=== PATIENT | female | born 1945 | race Caucasian/White ===

== ENCOUNTER 2022-03-06 15:17 | Emergency (ER) | payer OTHER ==
[~2022-03-06] VITALS: Ht 167.6 cm; Wt 69.4 kg
[~2022-03-06 15:17] MED LIST: ACID1TAB12 PO; AMIN30LI2 PO; ATOR10TA PO; BACL20TA PO; BISA-79 RC; BISA10SU RC; CHOL100040 PO; CRAN500C5 PO; CYAN1TAB65 PO; DOCU-141 PO; DULO60CA45 PO; FURO-144 PO; FURO40TA5 PO; GABA800T PO; HYDR4TAB4 PO; LEVE500T9 PO; LEVO137T24 PO; LORA-259 PO; MAGN30OR PO; MAGN400O21 PO; MULT-24 PO; NA P133E RC; OMEP20CA4 PO; POTA20PA3 PO; PSYL425P3 PO; SAW1CAPS PO; SENN17.26 PO; TEMA15CA5 PO; TYL2T PO
--- NOTE | 2022-03-06 16:00 | NUR ---
[id number] from snf, Left leg cellulitis, possible sepsis,started IV atb today. PLACED ON BED, AAOX3, BREATHING EVEN AND UNLABORED, SATURATING AT 94%RA.
[2022-03-06] MEDS ORDERED: CRAN3875 PO (16:29)
[2022-03-06] MEDS ORDERED: MELA3TAB41 PO (16:29)
[2022-03-06] MEDS ORDERED: CEFT1VIA14 IV (16:29)
[2022-03-06] MEDS ORDERED: MULT-447 PO (16:29)
[2022-03-06] MEDS ORDERED: HYDR-4209 PO (16:29)
[2022-03-06] MEDS ORDERED: HYDR-4303 PO (16:29)
[2022-03-06] MEDS ORDERED: FOLI0.4T6 PO (16:29)
[2022-03-06] MEDS ORDERED: MAGN400O6 PO (16:29)
[2022-03-06] MEDS ORDERED: VANCOMYCIN 1 GM in IV D5W 250 ML IV ONE (16:30)
[2022-03-06] MEDS ORDERED: CEFTRIAXONE 1GM BAG (ER ONLY) 50 ML IV ONE (16:30)
[2022-03-06] MEDS ORDERED: IV NS 0.9% 1,000 ML BAG IV ONE (16:30)
--- NOTE | 2022-03-06 16:35 | NUR ---
PET FOOD DEBONER AT BED SIDE
[2022-03-06 16:44] LABS: BASOPHILS # (AUTO) 0.1 K/uL (0.0-0.2); BASOPHILS % (AUTO) 0.3 % (0.0-2.0); EOSINOPHILS % (AUTO) 0.7 % (0.0-6.0); HEMATOCRIT 32 % (33-45); HEMOGLOBIN 10.8 g/dL (11.5-14.8); LYMPHOCYTES # (AUTO) 0.3 K/uL (0.8-4.8); LYMPHOCYTES % (AUTO) 1.2 % (20.0-44.0); MEAN CORPUSCULAR HGB CONC 34 g/dl (31.0-36.0); MEAN CORPUSCULAR VOLUME 94 fL (82-100); MONOCYTES # (AUTO) 0.3 K/uL (0.1-1.30); MONOCYTES % (AUTO) 1.3 % (2.0-12.0); NEUTROPHILS # (AUTO) 23.4 K/uL (1.8-8.9); NEUTROPHILS % (AUTO) 96.5 % (43.0-81.0); PLATELET COUNT (AUTO) 187 K/uL (150-450); WHITE BLOOD COUNT (AUTO) 24.3 K/uL (4.3-11.0)
--- NOTE | 2022-03-06 17:00 | NUR ---
X-RAY TECH AT BED SIDE
--- NOTE | 2022-03-06 17:05 | NUR ---
URINE SAMPLE AND SWAB FOR CIVID19 SENT TO LAB
--- NOTE | 2022-03-06 17:07 | NUR ---
PATIENT TAKEN TO CT VIA ESTEBAN
[2022-03-06 17:39] LABS: ALANINE AMINOTRANSFERASE 17 U/L (12-78); ALKALINE PHOSPHATASE 76 U/L (46-116); ASPARTATE AMINOTRANSFERASE 18 U/L (15-37); BILIRUBIN,DIRECT 0.2 mg/dL (0.0-0.2); BILIRUBIN,TOTAL 0.5 mg/dL (0.2-1.0); CALCIUM, SERUM 8.6 mg/dL (8.5-10.1); CARBON DIOXIDE 28 mmol/L (21-32); CHLORIDE 103 mmol/L (98-107); CREATININE 1.7 mg/dL (0.6-1.3); GLUCOSE 164 mg/dL (74-106); SODIUM SERUM 141 mmol/L (136-145); TOTAL PROTEIN, SERUM 6.8 g/dL (6.4-8.2); UREA NITROGEN, BLOOD 52 mg/dL (7-18)
[2022-03-06 17:42] LABS: POTASSIUM 2.7 mmol/L (3.5-5.1)
[2022-03-06] MEDS ORDERED: POTASSIUM CHLORIDE 20 MEQ TAB.PRT.SR PO ONE ×2 (19:00→21:08)
[2022-03-06] MEDS ORDERED: POTASSIUM CHLORIDE 10 MEQ/50 ML PREMIXED IVPB FOR PERIPHERAL LINE IV ONE (19:00)
[2022-03-06 19:31] LABS: BILIRUBIN,URINE NEGATIVE (NEGATIVE); COLOR,URINE YELLOW (YELLOW); LEUKOCYTE ESTERASE ,URINE LARGE (NEGATIVE); NITRITE, URINE NEGATIVE (NEGATIVE); PROTEIN,URINE 100 mg/dl (NEGATIVE); UGLUCOSE NEGATIVE (NEGATIVE)
[2022-03-06 20:05] LABS: BACTERIA,URINE 3+ /HPF (None Seen); RBC,URINE TOO NUMEROUS TO COUN /HPF (0-2); SQUAMOUS EPITHELIAL CELL,UR 0-2 /HPF (None Seen); WBC,URINE TOO NUMEROUS TO COUN /HPF (0-3)
--- NOTE | 2022-03-06 20:17 | NUR ---
IS FAX NUMBER FOR [facility]. SENDING CLINICALS AND FACESHEET NOW.
--- NOTE | 2022-03-06 20:34 | NUR ---
[facility] HAS BEDS NEEDS CLINICALS (NEEDS STABLE TO TRANSFER DOCTOR NOTE) [phone] (FAX) PER IRIS
--- NOTE | 2022-03-06 20:58 | NUR ---
PER IRIS, NEEDS FACESHEET , COVID RESULT, DOCTORS NOTE, AND STABLE FOR TRANSFER
[2022-03-06] MEDS ORDERED: POTASSIUM CL. PREMIX PERIPHER. 50 ML ONE (21:08)
[2022-03-06 21:52] LABS: BAND % (MANUAL) 17 % (0.0-5.0); EOSINOPHILS % (MANUAL) 3 % (0-4); LYMPHOCYTES % (MANUAL) 3 % (16-48); METAMYELOCYTES % 1 % (0-0); MONOCYTES % (MANUAL) 1 % (0-11.0); NEUTROPHILS % (MANUAL) 75 (42-76)
[2022-03-06] MEDS ORDERED: IV LR 1000 ML 1,000 ML IV ONE (22:30)
--- NOTE | 2022-03-06 23:33 | NUR ---
PT ACCEPTED TO [facility]. ROOM 301-A. # FOR REPORT [phone]
--- NOTE | 2022-03-06 23:39 | NUR ---
PER IRIS CM AM [facility] PICKUP ETA [phone]
--- NOTE | 2022-03-07 05:34 | NUR ---
SPOKE TO TOD INTERVENTION MANAGER [facility] FOR REPORT. WAS TOLD TO GIVE REPORT AFTER CHANGE OF SHIFT.
--- NOTE | 2022-03-07 06:59 | NUR ---
LARGE BM AND 450ML URINE OUTPUT VIA F/C NOTED . PT KEPT CLEAN AND DRY.
--- NOTE | 2022-03-07 07:10 | NUR ---
SPOKE TO BILLIE TANKER SERVICEMAN [facility] FOR REPORT. WAS TOLD TO GIVE REPORT IN 20 MINUTES "THE OTHER NURSES ARE GETTING REPORT"
--- NOTE | 2022-03-07 07:21 | NUR ---
NOTIFIED [employer]) DPOA OF TRANSFER TO [facility]
--- NOTE | 2022-03-07 07:25 | NUR ---
RECIVED PT FROM NANCY CAMACHO AWAKE OPEN HERE NAME TO JALEESA AVALOS orinted to here name
--- NOTE | 2022-03-07 07:29 | NUR ---
SAMI CARRERO RN TO [facility]
--- NOTE | 2022-03-07 08:15 | NUR ---
HAND OFF TO JORDAN GOLF PROFESSIONAL TO [phone] ROOM 301 PT VS STABLE NO FEVER
[2022-03-07 08:30] VITALS: BP 123/57
--- NOTE | 2022-03-07 08:37 | NUR ---
PICKED UP BY AMBULANCE FOR TRANSPORT.
== END 2022-03-07 08:51 | disposition short-term general hospital (02) ==
LOC: ER 15:20
DX: A41.9 Sepsis, unspecified organism (principal); N39.0 Urinary tract infection, site not specified; L03.116 Cellulitis of left lower limb; L03.115 Cellulitis of right lower limb; L03.311 Cellulitis of abdominal wall; R00.0 Tachycardia, unspecified; Z20.822 Contact with and (suspected) exposure to COVID-19
CPT/HCPCS: 99291; 74176; 96365; 71045; 96361; 96367; 87426; 93005; 84145; 85025; 80048; 87040 ×2; 87086; 83605; 80076; 81001; 36415; 84484; 85730; 85007; J3370; J7120 ×2; J3480; J0696; C9803; J7060